=== PATIENT | female | born 1960 | race Caucasian/White ===

== ENCOUNTER 2025-06-13 13:19 | Outpatient (CLI) | payer MEDICARE, SELFPAY ==
--- NOTE | ~2025-06-13 | US_ITS ---
EXAMINATION: US carotid duplex BI DATE: 06/13/2025 14:44 INDICATION: Left carotid artery stenosis TECHNIQUE: Grayscale, color Doppler, and pulsed Doppler images of the cervical carotid arteries were obtained. The degree of vessel stenosis is placed in one of the following categories: normal, <50%, 50-69%, >=70% but less than near- occlusion, near-occlusion, or total occlusion. Note that percent stenosis relative to normal distal artery lumen diameter is indirectly measured from velocity measurements as described by Lsat, et al. Radiology 2003; 229:340-346. Notes: Normal: Peak systolic velocity <125 centimeters/sec and no plaque <50%. Peak systolic velocity <125 (EDV <40; ICA/CCA PSV ratio <2.0; used these factors only a tandem lesions or low cardiac output or contralateral disease) 50-69 %: PSV 125-230 (EDV 40-100; ratio 2-4) >= 70% but less than near occlusion: PSV greater than 230 (EDV > 100; ratio> 4.0) Near Occlusion: PSV that is variable; markedly narrowed lumen Occlusion: Absent flow on color/spectral Doppler and no lumen on keenan scale. COMPARISON: None. FINDINGS: RIGHT: The right common carotid artery (CCA) peak systolic velocity (PSV) is 46 cm/s. The right internal carotid artery (ICA) PSV is 69 cm/s. The right ICA end- diastolic velocity (EDV) is 7 cm/s. The right ICA/CCA PSV ratio is 1.5. The external carotid artery (ECA) PSV is 40 cm/s. There is retrograde flow in the right vertebral artery. LEFT: The left CCA PSV is 101 cm/s. The left ICA PSV is 79 cm/s. The left ICA EDV is 26 cm/s. The left ICA/CCA PSV ratio is 0.8. The ECA PSV is 124 cm/s. There is bidirectional flow in the left vertebral artery. IMPRESSION: 1. Less than 50% stenosis in the right internal carotid artery by sonographic criteria. 2. Less than 50% stenosis in the left internal carotid artery by sonographic criteria. 3: Retrograde flow in the right vertebral artery consistent with subclavian steal syndrome and suspected high-grade stenosis in the right subclavian artery. 4: Bidirectional/turbulent flow in the left vertebral artery suspicious for left vertebral artery stenosis. Reviewed, dictated and finalized at location O. ENGINEER IMPRESSION: 1. Less than 50% stenosis in the right internal carotid artery by sonographic c riteria. 2. Less than 50% stenosis in the left internal carotid artery by sonographic cr iteria. 3: Retrograde flow in the right vertebral artery consistent with subclavian trell al syndrome and suspected high-grade stenosis in the right subclavian artery. 4: Bidirectional/turbulent flow in the left vertebral artery suspicious for le ft vertebral artery stenosis.
== END 2025-06-13 13:20 | disposition home or self-care (01) ==
PROVIDERS: PCP Nurse Practitioner; Visit Provider Nurse Practitioner
DX: I65.23 Occlusion and stenosis of bilateral carotid arteries (principal); I65.02 Occlusion and stenosis of left vertebral artery
CPT/HCPCS: 93880